=== PATIENT | female | born 1980 | race African-American/Black ===

== ENCOUNTER → 2019-07-10 | Outpatient (CLI) | payer BC ==
[~2019-07-10] MED LIST: IBUP80TA PO; MAPA500T2 PO; VITAPRTA PO; ZOLO25TA PO
--- NOTE | 2019-07-10 18:56 | REP ---
PA and lateral chest: Comparison is 11/07/2014. The lung vázquez are clear. The cardiac size is normal. The josie, mediastinum, and skeletal structures are unremarkable. Impression: Negative PA and lateral chest. There is no interval change. Electronically Signed by Andrew Byrd MD 07/10/2019 06:47 P
== END ==
LOC: M LRY 18:13
PROVIDERS: ATTEND Nurse Practitioner Family
DX: R05 Cough (principal)

== ENCOUNTER → 2025-09-29 | Outpatient (CLI) | payer OTHER ==
[2025-09-29 10:50] LABS: PLATELET COUNT, AUTOMATED 269 10^3/uL (150-450)
[2025-09-29 11:42] LABS: ALT/SGPT 13.0 U/L (7.0-40); AST/SGOT 20.0 U/L (<34); CALCIUM LEVEL 9.6 MG/DL (8.5-10.1); CARBON DIOXIDE LEVEL 28.0 MMOL/L (20-31); CHLORIDE LEVEL 103.0 MMOL/L (98-107); CHOLESTEROL LEVEL 173.0 MG/DL (<200); CHOLESTEROL RISK RATIO 2.44 (<5); CREATININE FOR GFR 0.84 MG/DL (0.55-1.30); FREE T4 1.31 NG/DL (0.89-1.76); GLOMERULAR FILTRATION RATE 86.2 (>58); LDL CHOLESTEROL 84.9 MG/DL (<100); NON-HDL-C 102.1 MG/DL; POTASSIUM SERUM 3.9 MMOL/L (3.5-5.1); SODIUM LEVEL 141.0 MMOL/L (136-145); TRIGLYCERIDES LEVEL 86.0 MG/DL (<150)
[2025-09-29 12:51] LABS: ESTIMATED AVERAGE GLUCOSE 77.0 MG/DL (60-110)
== END ==
LOC: M PLALAB 07:46
PROVIDERS: ATTEND Internal Medicine
DX: E06.3 Autoimmune thyroiditis (principal); E66.01 Morbid (severe) obesity due to excess calories; Z79.899 Other long term (current) drug therapy